=== PATIENT | male | born 1960 | race Caucasian/White ===

== ENCOUNTER 2024-04-20 08:50 | Emergency (ER) | payer OTHER, SELFPAY ==
[2024-04-20 09:07] VITALS: BP 131/89; PULSE 84; RESP 18; TEMP 36.2; O2SAT 97
--- NOTE | 2024-04-20 09:30 | ED.URI ---
HPI - URI/Sore Throat General Chief Complaint: Upper Respiratory Infection Stated Complaint: Cough/Chest Congestion Time Seen by Provider: 04/20/24 09:21 Source: patient, RN notes reviewed and old records reviewed Mode of arrival: ambulatory Limitations: no limitations History of Present Illness HPI Narrative: 64 year old male presents to [facility] with increasing coughing, shortness of breath and wheezing for the past week. Patient reports that he has had pneumonia about a month ago and was treated with antibiotics and steroids. 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 Patient does continue to use tobacco daily. Patient reports that he has seen biologist in past and was told he had chronic bronchitis has never been diagnosed with COPD or asthma.Patient reports that he is getting ready to go out of town for work and needs to get better before he leaves.Patient reports that he last used his nebulizer 1.5 hours ago. MD elicited complaint: cough and other (wheezing and shortness of breath) Pertinent past history: pneumonia and other (bronchitis) Onset (ago): week(s) (1 week with increased symptoms) Severity: moderate Able to tolerate fluids by mouth: Yes Treatments prior to arrival: other (inhaler, respiratory nebulizer treatments) Related Data Home Medications Medication Instructions Recorded Confirmed albuterol sulfate 2.5 mg/3 mL 2.5 mg continuous nebulization Q4H 04/20/24 04/20/24 (0.083 %) solution for nebulization PRN Shortness Of Breath Or Wheezing albuterol sulfate 90 mcg/actuation 2 puff inhalation Q4-6H PRN 04/20/24 04/20/24 aerosol inhaler Shortness Of Breath Or Wheezing fluticasone fur. 100 mcg-umeclid 1 inh inhalation DAILY 04/20/24 04/20/24 62.5 mcg-vilant 25 mcg inhalat.powder (Trelegy Ellipta) Allergies Allergy/AdvReac Type Severity Reaction Status Date / Time No Known Allergies Allergy Verified 04/20/24 09:20 Review of Systems Review of Systems: CONSTITUTIONAL: Denies fever, chills, or sweats. EYES: Denies visual changes, redness, or discharge. ENT: Denies rhinorrhea, congestion, sore throat, or otalgia. CARDIOVASCULAR: Denies chest pain, palpitations, or edema. RESPIRATORY: Reports cough and dyspnea increase for the past week with wheezing and tightness with breathing GASTROINTESTINAL: Denies abdominal pain, nausea, vomiting, or diarrhea. GENITOURINARY: Denies dysuria or hematuria. SKIN: Denies rash or itching. MUSCULOSKELETAL: Denies back pain, joint pain, or myalgia. NEUROLOGIC: Denies headache, numbness, or weakness. PSYCHIATRIC: Denies anxiety or depression. All systems reviewed & are unremarkable except as noted in HPI and below PMFSH Past Medical History Medical History (Updated 04/21/24 @ 00:00 by Terell Phillip) Bronchitis Pneumonia Social History Social History (Updated 04/20/24 @ 10:32 by Cathi Titus NP) Smoking packs per day: 0.5 Smoking cigarettes per day: 10.0 Years smoked: 12 Smoking pack-years: 6.00 Smoking status: Current every day smoker Tobacco type: cigarettes Alcohol intake: current Alcohol use details: social Substance use type: does not use Gender identity (if verbalized by the patient): Male Comments At time of signature, agree with nursing past medical, surgical, social and family history. There is no relevant family history pertinent to the presenting complaint Exam Narrative: GENERAL: Well-appearing, well-nourished, and in no acute distress. HEAD: Normocephalic, atraumatic. EYES: PERRLA and EOMI. ENT: Nares clear, no rhinorrhea or epistaxis. Mucous membranes moist. NECK: Supple. no lymphadenopathy CHEST: Scattered wheezing throughout lungs on auscultation, acute cough with some dyspnea with exertion and tightness with breathing. No acute respiratory distress. cough SAO2 97% on room air HEART: Regular rate and rhythm. No mu
[2024-04-20] MEDS: IPRATROPIUM 0.5 MG/ALBUTEROL SULFATE 2.5 MG AMPUL.NEB 3 ML INHALATION (09:37)
== END 2024-04-20 10:15 | disposition home or self-care (01) ==
PROVIDERS: Emergency Provider Registered Nurse
DX: J40 Bronchitis, not specified as acute or chronic (principal); F17.210 Nicotine dependence, cigarettes, uncomplicated
CPT/HCPCS: 94640; 99213; G0463

== ENCOUNTER 2024-08-17 14:02 | Emergency (ER) | payer OTHER, SELFPAY ==
[2024-08-17 14:10] VITALS: BP 128/90; PULSE 90; RESP 20; TEMP 37.2; O2SAT 96
[2024-08-17 14:29] VITALS: BP 128/90; PULSE 90; RESP 20; TEMP 37.2; O2SAT 96
--- NOTE | 2024-08-17 14:43 | ED_ITS ---
HPI - General Adult General Chief complaint: Upper Respiratory Infection Stated complaint: sob/chronic bronchitis Time Seen by Provider: 08/17/24 14:40 Source: patient, RN notes reviewed and old records reviewed Mode of arrival: ambulatory Limitations: no limitations History of Present Illness HPI narrative: 64 year old male presents to [facility] with complaints of sinus drainage which started the night before last with increased wheezing and cough. Patient has history of chronic bronchitis/ COPD and uses trilogy inhaler and has nebulizer of Albuterol at home for his symptoms and has Albuterol inhaler also. Patient reports that he had a follow up appointment with his physician in [place] the coming week but has been called out of town to go to [place] for work for a few weeks. Patient requesting refill on inhaler and nebulizer solution and also some steroids for increase cough,and some shortness of breath. Patient continues to use tobacco daily states a pack of cigarettes usually last 3-4 days. MD complaint: shortness of breath chronic bronchitis Onset (ago): day(s) (2) Severity: moderate Treatments prior to arrival: other (nebulizer and Trilogy) Related Data Home Medications Medication Instructions Recorded Confirmed albuterol sulfate 2.5 mg/3 mL 2.5 mg continuous nebulization Q4H 04/20/24 08/17/24 (0.083 %) solution for nebulization PRN Shortness Of Breath Or Wheezing albuterol sulfate 90 mcg/actuation 2 puff inhalation Q4-6H PRN 04/20/24 08/17/24 aerosol inhaler Shortness Of Breath Or Wheezing fluticasone fur. 100 mcg-umeclid 1 inh inhalation DAILY 04/20/24 08/17/24 62.5 mcg-vilant 25 mcg inhalat.powder (Trelegy Ellipta) Allergies Allergy/AdvReac Type Severity Reaction Status Date / Time No Known Allergies Allergy Verified 08/17/24 15:10 Review of Systems Review of Systems: CONSTITUTIONAL: Denies malaise, chills, sweats, or fever. EYES: Denies visual changes, redness, or discharge. ENT: Reports rhinorrhea, congestion, sinus pain, no otalgia and no sore throat. CARDIOVASCULAR: Denies chest pain, palpitations, or edema. RESPIRATORY: Reports cough.? Reports increased dyspnea and wheezing.. GASTROINTESTINAL: Denies abdominal pain, nausea, vomiting, diarrhea SKIN: Denies rash or itching. MUSCULOSKELETAL: Denies myalgia. NEUROLOGIC: Denies headache. All systems reviewed & are unremarkable except as noted in HPI and below PMFSH Past Medical History Medical History (Updated 08/18/24 @ 00:01 by Terell Phillip) Bronchitis Pneumonia Social History Social History (Updated 04/20/24 @ 10:32 by Cathi Titus NP) Smoking packs per day: 0.5 Smoking cigarettes per day: 10.0 Years smoked: 12 Smoking pack-years: 6.00 Smoking status: Current every day smoker Tobacco type: cigarettes Alcohol intake: current Alcohol use details: social Substance use type: does not use Gender identity (if verbalized by the patient): Male Comments At time of signature, agree with nursing past medical, surgical, social and family history. There is no relevant family history pertinent to the presenting complaint Exam Narrative: GENERAL: Well-appearing, well-nourished, and in no acute distress. HEAD: Normocephalic EYES: PERRLA, conjunctivae clear ENT: Nares clear, turbinates edematous and erythematous, clear discharge sinus pressure, Mucous membranes moist. TM pearly treviño with dull light reflex bilaterally; no tragal tenderness. Oropharynx erythematous without lesions. Tonsils not enlarged and without exudate, no drooling, no hoarseness, no trismus, uvula midline.post nasal drainage NECK: Supple. No lymphadenopathy CHEST: Scattered wheezing auscultation, breath sounds equal.Positive for whee zing, no rhonchi, rales, or stridor. No respiratory distress, speaks in full sentences.cough noted is at times productive, no tachypnea noted or any retractions, SAO2 97% on room air HEART: Regular rate and rhythm. No murmur heard. SKIN: Warm, dry, no rash. NEURO: Alert and oriented x3. PSYCH: Normal mood and affect Course Course Emergency Course: Patient is aware of diagnosis, understands and agrees to treatment plan.? Anticipatory guidance given.? Patient agrees to follow-up as directed and is aware of reasons to seek care at the emergency department. Portions of this record may have been created with voice recognition software Level of Care: Express Care Visit Vital Signs Vital signs: Vital Signs Temperature 37.2 C 08/17/24 14:10 Pulse Rate 90 08/17/24 14:10 Respiratory Rate 20 08/17/24 14:10 Blood Pressure 128/90 08/17/24 14:10 Pulse Oximetry 96 08/17/24 14:10 Oxygen Delivery Room Air 08/17/24 14:10 Temperature 37.2 C 08/17/24 14:29 Pulse Rate 88 08/17/24 15:20 Respiratory Rate 20 08/17/24 15:20 Blood Pressure 128/90 08/17/24 14:29 Pulse Oximetry 97 08/17/24 15:20 Oxygen Delivery Room Air 08/17/24 14:29 Reviewed Medical Decision Making MDM Narrative Medical decision making narrative: Patient received Duo-Neb treatment while in clinic with noted decrease in wheezing after treatment with patient verbalizing improved aeration, states he feels 80% better. Differential Diagnosis Differential Diagnosis: COPD exacerbation, chronic bronchitis, dyspnea with exertion, sinus congestion Medical Records Medical records reviewed: Yes I reviewed the external patient's medical records. Vital Signs Vital Signs: Vital Signs Temperature 37.2 C 08/17/24 14:10 Pulse Rate 90 08/17/24 14:10 Respiratory Rate 20 08/17/24 14:10 Blood Pressure 128/90 08/17/24 14:10 Pulse Oximetry 96 08/17/24 14:10 Oxygen Delivery Room Air 08/17/24 14:10 Temperature 37.2 C 08/17/24 14:29 Pulse Rate 88 08/17/24 15:20 Respiratory Rate 20 08/17/24 15:20 Blood Pressure 128/90 08/17/24 14:29 Pulse Oximetry 97 08/17/24 15:20 Oxygen Delivery Room Air 08/17/24 14:29 reviewed Critical Care Time Critical Care Time Critical Care Time: No Discharge Plan Discharge Clinical Impression: COPD exacerbation Patient Disposition: Home, Self-Care Condition: Stable Instructions: Antibiotic Form, COPD (Chronic Obstructive Pulmonary Disease) (ED) Additional Instructions: Increase fluids especially juices and water [id number] cough and cold medicine of your choice for your symptoms Zyrtec Claritin or Susy daily Tylenol or ibuprofen for any fever pain Continue your inhaler/nebulizer as directed Steroids as directed--take with food heat to the face 20-30 minutes 4-6 times a day for pain Salt water gargles, throat lozenges or throat sprays as desired Antibiotic as directed--finished the medication If your symptoms persist, change or worsen significantly before you can contact your personal physician then please, without delay, go to the emergency department for further evaluation. Follow-up with PCP in 7-10 days or sooner if needed Follow up with PCP soon in regards to your blood pressure which is elevated above threshold for referral. Blood pressure above 120/80 may indicate pre- hypertension. Prescriptions: New albuterol sulfate 2.5 mg /3 mL (0.083 %) solution for nebulization 2.5 mg inhalation Q4H Qty: 180 0RF albuterol sulfate 90 mcg/actuation HFA aerosol inhaler 2 puff inhalation QID PRN (Reason: shortness of breath or wheezing) Qty: 8.5 0RF prednisone 50 mg tablet 50 mg PO DAILY Qty: 5 0RF azithromycin 250 mg tablet See Rx Instructions .ROUTE .COMPLEX Qty: 6 0RF Rx Instructions: For 250 mg dose pack: take 500 mg today (day 1), then 250 mg for 4 days (days 2-5) No Action albuterol sulfate 90 mcg/actuation HFA aerosol inhaler 2 puff INHALATION Q4-6H PRN (Reason: Shortness Of Breath Or Wheezing) Trelegy Ellipta 100-62.5-25 mcg Blister With Device 1 inh INHALATION DAILY albuterol sulfate 2.5 mg /3 mL (0.083 %) solution for nebulization 2.5 mg continuous nebulization Q4H PRN (Reason: Shortness Of Breath Or Wheezing) Follow-up/Referrals: PHYSICIAN NOT ON STAFF,NONSTAFF [Primary Care Provider] - Time of Disposition: 15:16 Quality [place] Coma Scale Eyes: Open Verbal: Oriented and Alert Motor: Follows Commands [place] Coma Total Score: 15
[2024-08-17] MEDS: IPRATROPIUM 0.5 MG/ALBUTEROL SULFATE 2.5 MG AMPUL.NEB 3 ML INHALATION (15:04)
[2024-08-17 15:20] VITALS: PULSE 88; RESP 20; O2SAT 97
== END 2024-08-17 15:20 | disposition home or self-care (01) ==
PROVIDERS: Emergency Provider Registered Nurse
DX: J44.1 Chronic obstructive pulmonary disease with (acute) exacerbation (principal); F17.210 Nicotine dependence, cigarettes, uncomplicated
CPT/HCPCS: 94640; 99213; G0463